=== PATIENT | female | born 1965 | race Caucasian/White ===

== ENCOUNTER 2022-10-09 11:47 | Outpatient (OUT) | payer OTHER, SELFPAY | END 2022-10-09 11:48 | disposition home or self-care (01) | LOC: VC 11:48 | PROVIDERS: PCP Radiology Diagnostic Radiology; Visit Provider Radiology Diagnostic Radiology | DX: I83.813 Varicose veins of bilateral lower extremities with pain (principal) ==

== ENCOUNTER 2024-02-04 12:06 | Emergency (ER) | payer OTHER, SELFPAY ==
[2024-02-04 12:13] VITALS: BP 123/84; PULSE 78; TEMP 36.7; O2SAT 99; BMI 32.6
--- NOTE | 2024-02-04 12:25 | XR_ITS ---
The [address] [address] Patient Name: ROCIO MÉNDEZ MRN: [id number] date: 1965 Sex: F Assigned Patient Location: ER Current Patient Location: ER Accession/Order Number: [id number] Exam Date: 02/04/2024 12:33 Report Date: 02/04/2024 13:06 At the request of: FREDDIE CERVANTES Procedure: XR chest 2V EXAMINATION: XR chest 2V HISTORY: cough COMPARISON: No relevant comparison available. FINDINGS: LUNGS: No significant pulmonary parenchymal abnormalities. VASCULATURE: No increased pulmonary vasculature. PLEURA: No pneumothorax, effusion, or pleural thickening. CARDIAC: No cardiomegaly or cardiac silhouette abnormality. MEDIASTINUM: No visible mass or adenopathy. BONES: No fracture or visible bone lesion. OTHER: Negative. XR/XR chest 2V IMPRESSION: 1. No acute cardiopulmonary process. Electronically authenticated by: KALEIGH COOPER Date: 02/04/2024 13:06
--- NOTE | 2024-02-04 13:08 | ED_ITS ---
HPI - URI/Sore Throat General Chief Complaint: Upper Respiratory Infection Stated Complaint: COVID POSITIVE Time Seen by Provider: 02/04/24 12:08 Source: patient Limitations: no limitations History of Present Illness HPI Narrative: Patient presents ED complaining of upper respiratory symptoms. Patient states about 10 days ago she started with a tickle in her throat and then developed a cough and general illness. She contacted her nurse practitioner who told her it was an upper respiratory infection and started her on some Tessalon Perles. Patient states she been taking [id number] medication as well. Patient then tested herself for COVID on Friday and tested positive. She called her nurse practitioner who put her on an antiviral at that time. Patient states it has been 10 days and she is really not any better so she is concerned that something else could be going on. 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 Patient's vitals are stable. No fever no hypoxia, she is not in any acute respiratory distress. She reports that she has been coughing hard and this has been causing a headache and some throat pain. She said the Tessalon Perles at home are not helping. No other complaints at this time Related Data Home Medications ?Medication ?Instructions ?Recorded ?Confirmed sertraline 50 mg tablet 50 mg PO Q24H 02/04/24 02/04/24 Previous Rx's ?Medication ?Instructions ?Recorded hydrocodone-homatropine 5 mg-1.5 5 ml PO TID #60 mL 02/04/24 mg/5 mL (5 mL) oral syrup (Hycodan) Allergies Allergy/AdvReac Type Severity Reaction Status Date / Time No Known Drug Allergies Allergy Verified 02/04/24 12:17 Review of Systems ROS Status of ROS 10 or more systems reviewed and unremark able except as noted in history and below PFSH PFSH Social History Little interest or pleasure in doing things: not at all Feeling down, depressed, or hopeless: not at all Exam Narrative Exam Narrative: Time Seen: [] Vital Signs: [Per nurse's notes.] General: [Alert] Skin: [Warm, dry, no rash.] Head: [Normocephalic, atraumatic.] Neck: [Supple, trachea midline.] Eye: [Pupils are equal, round and reactive to light, extraocular movements are intact, normal conjunctiva.] Ears, nose, mouth and throat: oral mucosa moist. Cardiovascular: [Regular rate and rhythm, no murmur.] Respiratory: [Lungs are clear to auscultation, respirations are non-labored, breath sounds are equal.] Chest wall: [No tenderness, no deformity.] Gastrointestinal: [Soft, nontender, non distended, normal bowel sounds.] MSK: 5 out of 5 muscle strength x 4 extremities no calf pain or edema Lymphatics: [No lymphadenopathy.] Psychiatric: [Cooperative, appropriate mood & affect.] Neurological: [Alert and oriented to person, place, time, and situation, no focal neurological deficit observed.] Constitutional Vital Signs, click to edit/add: Last Vital Signs Temp 98.0 F 02/04/24 12:13 Pulse 75 02/04/24 13:19 Resp 16 02/04/24 13:19 BP 126/74 02/04/24 13:19 Pulse Ox 99 02/04/24 13:19 O2 Del Method Room Air 02/04/24 13:19 Course Vital Signs Vital signs: Vital Signs Temperature 98.0 F 02/04/24 12:13 Pulse Rate 78 02/04/24 12:13 Respiratory Rate 18 02/04/24 12:13 Blood Pressure 123/84 02/04/24 12:13 Pulse Oximetry 99 02/04/24 12:13 Oxygen Delivery Method Room Air 02/04/24 12:13 Temperature 98.0 F 02/04/24 12:13 Pulse Rate 75 02/04/24 13:19 Respiratory Rate 16 02/04/24 13:19 Blood Pressure 126/74 02/04/24 13:19 Pulse Oximetry 99 02/04/24 13:19 Oxygen Delivery Method Room Air 02/04/24 13:19 MDM - URI/Sore Throat MDM Narrative Medical decision making narrative: Patient's chest x-ray does not show any pneumonia. Vital signs stable no acute respiratory distress no hypoxia. Patient is on antiviral and she has Tessalon Perles. I do not see an indication for an antibiotic at this time however she is having a lot of trouble with the cough. She said it is causing a headache and a sore throat. I will write her prescription for Hycodan. Return to ED if worsening symptoms otherwise follow-up with family doctor as outpatient. Patient is stable and comfortable care plan for home Differential Diagnosis Differential diagnosis: Likely upper respiratory infection, sinusitis, viral infection and bronchitis Imaging Data Chest x-ray: Radiologist's impression: ITS Impressions Chest X-Ray 02/04/24 12:25 IMPRESSION: 1. No acute cardiopulmonary process. Electronically authenticated by: KALEIGH COOPER Date: 02/04/2024 13:06 Discharge Plan Discharge Chief Complaint: Upper Respiratory Infection Clinical Impression: COVID Patient Disposition: Home, Self-Care Time of Disposition Decision: 13:10 Condition: Good Mode of Transportation: Private Vehicle Prescriptions / Home Meds: New hydrocodone-homatropine [Hycodan] 5-1.5 mg/5 mL (5 mL) syrup 5 ml PO TID Qty: 60 0RF No Action sertraline 50 mg tablet 50 mg PO Q24H Print Language: Chilean Instructions: COVID-19 (Coronavirus Disease 2019) (ED) Referrals: Ezequiel Vasquez MD [Primary Care Provider] - 1 week Discharge Date/Time: 02/04/24 13:20
[2024-02-04 13:19] VITALS: BP 126/74; PULSE 75; O2SAT 99
== END 2024-02-04 13:20 | disposition home or self-care (01) ==
PROVIDERS: Emergency Provider Emergency Medicine; PCP Radiology Diagnostic Radiology
DX: U07.1 COVID-19 (principal)
CPT/HCPCS: 71046; 99283